=== PATIENT | male | born 1925 | race Caucasian/White ===

== ENCOUNTER 2016-10-26 07:49 | Inpatient (IN) | payer MEDICARE, OTHER ==
--- NOTE | 2016-10-26 08:04 | ED ---
Fall HPI - General Source: RN notes reviewed, old records reviewed <Sabi Rosario - Last Filed: 10/26/16 09:49> <Carmelo Drake - Last Filed: 10/27/16 07:41> - General Chief Complaint: Fall Stated Complaint: Fall Time Seen by Provider: 10/26/16 07:51 - History of Present Illness Initial Comments: This is a 89-year-old male presenting to the emergency department, chief complaint of sliding out of bed. Patient reports that he was trying to use the urinal, and his foot got caught in the covers and twisted. Patient reports that in the process of trying to untwist his leg he slipped out of his bed and landed with his knees bent in an awkward position and was laying on his stomach. Patient reports that he was down there for approximately an hour. Patient states that he currently lives in [facility] assisted living facility. Patient reports that he did not hit his head on the fall. He denies any loss of consciousness. He reports the pain is mainly in his lower back, and knees. He reports he's had surgeries on both knees and back. Patient reports that he did not hit his head. He has a history of A. fib, and heart failure. Patient reports that he's had some swelling in his legs but that is been chronic and no acute differences at this time. He is on Lasix 40 mg. Patient denies any recent fever or chills, chest pain, shortness of breath, abdominal pain, nausea or vomiting. (Sabi Rosario) - Related Data Home Medications Medication Instructions Recorded Confirmed Aspirin EC [Ecotrin] 81 mg PO QAM 02/25/14 10/26/16 Clopidogrel [Plavix] 75 mg PO QAM 02/25/14 10/26/16 Ezetimibe [Zetia] 10 mg PO QAM 02/25/14 10/26/16 Ferrous Sulfate [Feosol] 325 mg PO HS 02/25/14 10/26/16 Multivitamin [Men's Multi-Vitamin] 1 tab PO DAILY 02/25/14 10/26/16 Potassium Chloride ER [K-Dur 20] 20 meq PO HS 02/25/14 10/26/16 Vitamin E (Dl,Tocopheryl Acet) 400 unit PO HS 02/25/14 10/26/16 [Vitamin E] guaiFENesin [Mucinex] 1,200 mg PO HS PRN 02/25/14 10/26/16 Carvedilol [Coreg] 12.5 mg PO BID 08/25/15 10/26/16 Ergocalciferol (Vitamin D2) 50,000 unit PO TU 08/25/15 10/26/16 [Drisdol] Furosemide [Lasix] 40 mg PO HS 10/26/16 10/26/16 Meclizine [Antivert] 25 mg PO BID PRN 10/26/16 10/26/16 Previous Rx's Medication Instructions Recorded predniSONE 50 mg PO DAILY #5 tab 08/25/15 Allergies Allergy/AdvReac Type Severity Reaction Status Date / Time Sulfa (Sulfonamide Allergy Unknown Verified 10/26/16 08:28 Antibiotics) Review of Systems ROS Other: All systems not noted in ROS Statement are negative. <Sabi Rosario - Last Filed: 10/26/16 09:49> ROS Other: All systems not noted in ROS Statement are negative. <Carmelo Drake - Last Filed: 10/27/16 07:41> ROS Statement: Those systems with pertinent positive or pertinent negative responses have been documented in the HPI. Past Medical History Past Medical History: Heart Failure, Hypertension Additional Past Medical History / Comment(s): peptic ulcer, sleep apnea History of Any Multi-Drug Resistant Organisms: None Reported Past Surgical History: Back Surgery, Heart Catheterization With Stent, Joint Replacement, Orthopedic Surgery Additional Past Surgical History / Comment(s): stomach, prostate, cataract Past Psychological History: No Psychological Hx Reported Smoking Status: Former smoker Past Alcohol Use History: Occasional Past Drug Use History: None Reported <Sabi Rosario - Last Filed: 10/26/16 09:49> General Exam General appearance: alert, in no apparent distress Head exam: Present: atraumatic, normocephalic, normal inspection Eye exam: Present: normal appearance, PERRL, EOMI. Absent: scleral icterus, conjunctival injection, periorbital swelling ENT exam: Present: normal exam, mucous membranes moist Neck exam: Present: normal inspection. Absent: tenderness, meningismus, lymphadenopathy Respiratory exam: Present: normal lung sounds bilaterally. Absent: respiratory distress, wheezes, rales, rhonchi, stridor Cardiovascular Exam: Present: regular rate, normal rhythm, normal heart sounds. Absent: systolic murmur, diastolic murmur, rubs, gallop, clicks GI/Abdominal exam: Present: soft, normal bowel sounds. Absent: distended, tenderness, guarding, rebound, rigid Extremities exam: Present: normal inspection, pedal edema (Patient has 4+ bilateral pedal edema. There is an area over the left medial knee which has a blister. Patient reports that that was from his fall and laying there for so long. There are also a few areas of erythematous lesions over bilateral legs, patient reports that they are spider bites.) Back exam: Present: normal inspection, tenderness (She reports lumbar spinal tenderness.) Neurological exam: Present: alert, oriented X3, CN II-XII intact Psychiatric exam: Present: normal affect, normal mood Skin exam: Present: warm <Sabi Rosario - Last Filed: 10/26/16 09:49> <Carmelo Drake - Last Filed: 10/27/16 07:41> - General Exam Comments Initial Comments: This is a 89-year-old male. Patient does not appear to be in any acute distress. Patient is joking and laughing. (Sabi Rosario) Medical Decision Making - Lab Data Result diagrams: 10/26/16 08:20 10/26/16 08:20 - Radiology Data Radiology results: report reviewed <Sabi Rosario - Last Filed: 10/26/16 09:49> - Lab Data Result diagrams: 10/27/16 05:17 10/27/16 05:17 <Carmelo Drake - Last Filed: 10/27/16 07:41> - Medical Decision Making 89-year-old male chief complaint of a fall out of bed. He does arrive to emergency department complaining of some knee pain and lower back pain. He has significant bilateral pedal edema. Patient EKG does show A. fib however this was noted to be in the previous chart in 2013. He is currently on Plavix for anticoagulation therapy. Patient troponin level is noted to be elevated at 0.053. I discussed this case with Dr. Arshad. Patient will be admitted. Patient was given morphine, aspirin. He does not complain of any chest pain at this time.Patient's urinalysis also does show sign of severe infection. Culture will be obtained. Patient will be started on Rocephin. Patient's knee x-ray and chest x-ray were both normal, no significant abnormalities. He does have significant subcutaneous edema bilateral lower extremities. He does request a catheter to be initiated he is been leaking his urine and will be doing so if he started on Lasix. Catheter was started. Patient's lumbar spine CT does show multiple degenerative disc disease, and canal stenosis. The report is dictated below. Patent will be admitted to Dr. Callahan. (Sabi Rosario) 89-year-old male with chief complaint of sliding out of his bed. Complaining of low back pain, bilateral knee.. Patient denies any head or neck trauma. He does have history of atrial fibrillation, and heart failure. On examination patient has tenderness in the lumbar spine, no external signs of trauma, bilateral knee tenderness again no external signs of trauma. X-rays are obtained of the bilateral knees, no acute fracture dislocation, computed tomography scan lumbar spine shows no acute fracture or subluxation, there is significant disease within the lumbar spine, patient is wheelchair-bound at baseline. Laboratory studies reveal signs of urinary tract infection, urine culture is pending patient will be treated empirically. Troponin level is mildly elevated, 0.053, patient has no chest pain no shortness of breath. EKG shows no acute ischemic changes. Patient will be admitted for serial troponins and treatment of urinary tract infection. Patient is agreeable with this plan. (Carmelo Drake) - Lab Data Lab Results 10/26/16 10/26/16 10/26/16 Range/Units 08:20 08:20 08:20 WBC 13.2 H (3.8-10.6) k/uL RBC 4.00 L (4.30-5.90) m/uL Hgb 14.5 (13.0-17.5) gm/dL Hct 44.6 (39.0-53.0) % MCV 111.5 H (80.0-100.0) fL MCH 36.2 H (25.0-35.0) pg MCHC 32.5 (31.0-37.0) g/dL RDW 13.6 (11.5-15.5) % Plt Count 136 L (150-450) k/uL Neutrophils % 82 % Lymphocytes % 7 % Monocytes % 7 % Eosinophils % 2 % Basophils % 1 % Neutrophils # 10.9 H (1.3-7.7) k/uL Lymphocytes # 0.9 L (1.0-4.8) k/uL Monocytes # 1.0 (0-1.0) k/uL Eosinophils # 0.3 (0-0.7) k/uL Basophils # 0.1 (0-0.2) k/uL Manual Slide Review Performed Macrocytosis Marked PT 11.4 (9.0-12.0) sec INR 1.1 (<1.2) APTT 22.5 (22.0-30.0) sec Sodium 136 L (137-145) mmol/L Potassium 4.0 (3.5-5.1) mmol/L Chloride 99 (98-107) mmol/L Carbon Dioxide 29 (22-30) mmol/L Anion Gap 8 mmol/L BUN 25 H (9-20) mg/dL Creatinine 1.01 (0.66-1.25) mg/dL Est GFR (MDRD) Af Amer >60 (>60 ml/min/1.73 sqM) Est GFR (MDRD) Non-Af >60 (>60 ml/min/1.73 sqM) Glucose 233 H (74-99) mg/dL Estimated Ave Glu mg/dL mg/dL Hemoglobin A1c (4.2-6.1) % Calcium 9.1 (8.4-10.2) mg/dL Troponin I (0.000-0.034) ng/mL NT-Pro-B Natriuret Pep pg/mL Urine Color Urine Appearance (Clear) Urine pH (5.0-8.0) Ur Specific [place] (1.001-1.035) Urine Protein (Negative) Urine Glucose (UA) (Negative) Urine Ketones (Negative) Urine Blood (Negative) Urine Nitrite (Negative) Urine Bilirubin (Negative) Urine Urobilinogen (<2.0) mg/dL Ur Leukocyte Esterase (Negative) Urine RBC (0-5) /hpf Urine WBC (0-5) /hpf Urine WBC Clumps (None) /hpf Urine Bacteria (None) /hpf Stool Occult Blood (Negative) 10/26/16 10/26/16 10/26/16 Range/Units 08:20 08:20 08:20 WBC (3.8-10.6) k/uL RBC (4.30-5.90) m/uL Hgb (13.0-17.5) gm/dL Hct (39.0-53.0) % MCV (80.0-100.0) fL MCH (25.0-35.0) pg MCHC (31.0-37.0) g/dL RDW (11.5-15.5) % Plt Count (150-450) k/uL Neutrophils % % Lymphocytes % % Monocytes % % Eosinophils % % Basophils % % Neutrophils # (1.3-7.7) k/uL Lymphocytes # (1.0-4.8) k/uL Monocytes # (0-1.0) k/uL Eosinophils # (0-0.7) k/uL Basophils # (0-0.2) k/uL Manual Slide Review Macrocytosis PT (9.0-12.0) sec INR (<1.2) APTT (22.0-30.0) sec Sodium (137-145) mmol/L Potassium (3.5-5.1) mmol/L Chloride (98-107) mmol/L Carbon Dioxide (22-30) mmol/L Anion Gap mmol/L BUN (9-20) mg/dL Creatinine (0.66-1.25) mg/dL Est GFR (MDRD) Af Amer (>60 ml/min/1.73 sqM) Est GFR (MDRD) Non-Af (>60 ml/min/1.73 sqM) Glucose (74-99) mg/dL Estimated Ave Glu mg/dL 206 mg/dL Hemoglobin A1c 8.8 H (4.2-6.1) % Calcium (8.4-10.2) mg/dL Troponin I 0.053 H* (0.000-0.034) ng/mL NT-Pro-B Natriuret Pep 2180 pg/mL Urine Color Urine Appearance (Clear) Urine pH (5.0-8.0) Ur Specific Bar[place] (1.001-1.035) Urine Protein (Negative) Urine Glucose (UA) (Negative) Urine Ketones (Negative) Urine Blood (Negative) Urine Nitrite (Negative) Urine Bilirubin (Negative) Urine Urobilinogen (<2.0) mg/dL Ur Leukocyte Esterase (Negative) Urine RBC (0-5) /hpf Urine WBC (0-5) /hpf Urine WBC Clumps (None) /hpf Urine Bacteria (None) /hpf Stool Occult Blood (Negative) 10/26/16 10/26/16 Range/Units 09:00 09:30 WBC (3.8-10.6) k/uL RBC (4.30-5.90) m/uL Hgb (13.0-17.5) gm/dL Hct (39.0-53.0) % MCV (80.0-100.0) fL MCH (25.0-35.0) pg MCHC (31.0-37.0) g/dL RDW (11.5-15.5) % Plt Count (150-450) k/uL Neutrophils % % Lymphocytes % % Monocytes % % Eosinophils % % Basophils % % Neutrophils # (1.3-7.7) k/uL Lymphocytes # (1.0-4.8) k/uL Monocytes # (0-1.0) k/uL Eosinophils # (0-0.7) k/uL Basophils # (0-0.2) k/uL Manual Slide Review Macrocytosis PT (9.0-12.0) sec INR (<1.2) APTT (22.0-30.0) sec Sodium (137-145) mmol/L Potassium (3.5-5.1) mmol/L Chloride (98-107) mmol/L Carbon Dioxide (22-30) mmol/L Anion Gap mmol/L BUN (9-20) mg/dL Creatinine (0.66-1.25) mg/dL Est GFR (MDRD) Af Amer (>60 ml/min/1.73 sqM) Est GFR (MDRD) Non-Af (>60 ml/min/1.73 sqM) Glucose (74-99) mg/dL Estimated Ave Glu mg/dL mg/dL Hemoglobin A1c (4.2-6.1) % Calcium (8.4-10.2) mg/dL Troponin I (0.000-0.034) ng/mL NT-Pro-B Natriuret Pep pg/mL Urine Color Yellow Urine Appearance Turbid (Clear) Urine pH 5.5 (5.0-8.0) Ur Specific Barco 1.017 (1.001-1.035) Urine Protein 1+ H (Negative) Urine Glucose (UA) Negative (Negative) Urine Ketones Negative (Negative) Urine Blood Moderate H (Negative) Urine Nitrite Positive (Negative) Urine Bilirubin Negative (Negative) Urine Urobilinogen <2.0 (<2.0) mg/dL Ur Leukocyte Esterase Large H (Negative) Urine RBC 78 H (0-5) /hpf Urine WBC >182 H (0-5) /hpf Urine WBC Clumps Many H (None) /hpf Urine Bacteria Few H (None) /hpf Stool Occult Blood Negative (Negative) 10/26/16 08:42 EKG shows A. fib, ventricular rate of 63 bpm. QRS duration 106 ms. QT QTc is 450/460 ms. Evidence of anterior lateral infarct previous,. (Sabi Rosario) - Radiology Data No acute fracture dislocation either knee. Prostate EC suramin anatomic alignment. Generalized subcu edema both lower extremity. CT lumbar spine shows grade 1 spondylolisthesis of a 6 mm anterior position of L4 over L5 with posterior pseudo-disc at L4-L5 level. Postlaminectomy changes at L4-L5. Some particular recess stenosis more notable L2-L3. Canal stenosis at L2 and L3-L4 suspected be correlated with MRI. Moderate hypertrophic changes of the posterior facets. This was read by Dr. Epperson. Chest x-ray shows no acute cardiopulmonary process. (Sabi Rosario) Disposition Time of Disposition: 09:48 <Sabi Rosario - Last Filed: 10/26/16 09:49> <Carmelo Drake - Last Filed: 10/27/16 07:41> Clinical Impression: Fall, Elevated troponin, Heart failure, Back pain, Knee pain, bilateral, UTI ( urinary tract infection) Disposition: ADMITTED IP TO THIS HOSP Condition: Stable
[2016-10-26 08:35] LABS: Basophils # (A) 0.1 k/uL (0-0.2); Basophils % (A) 1 %; CH 36.4; CHCM 32.9; Eosinophils # (A) 0.3 k/uL (0-0.7); Eosinophils % (A) 2 %; HCT 44.6 % (39.0-53.0); HDW 2.23; HGB 14.5 gm/dL (13.0-17.5); Luc % (Auto) 2; Lymphocytes # (A) 0.9 k/uL (1.0-4.8); Lymphocytes % (A) 7 %; MCH 36.2 pg (25.0-35.0); MCHC 32.5 g/dL (31.0-37.0); MCV 111.5 fL (80.0-100.0); Macrocytosis Marked; Mean Platelet Volume 10.1; Monocytes % (A) 7 %; Neutrophils # (A) 10.9 k/uL (1.3-7.7); Neutrophils % (A) 82 %; RDW 13.6 % (11.5-15.5); WBC 13.2 k/uL (3.8-10.6); WBC (Perox) 13.19
[2016-10-26 08:43] LABS: INR 1.1 (<1.2); Partial Thromboplastin Time 22.5 sec (22.0-30.0); Prothrombin Time 11.4 sec (9.0-12.0)
[2016-10-26 08:44] LABS: Anion Gap 8 mmol/L; Blood Urea Nitrogen 25 mg/dL (9-20); Calcium 9.1 mg/dL (8.4-10.2); Carbon Dioxide 29 mmol/L (22-30); Chloride 99 mmol/L (98-107); Glucose 233 mg/dL (74-99); Non-African American GFR(MDRD) >60 (>60 ml/min/1.73 sqM); Sodium 136 mmol/L (137-145)
[2016-10-26 08:59] LABS: Manual Review Performed
[2016-10-26 09:23] LABS: Appearance,Urine Turbid (Clear); Bacteria,Urine Few /hpf; Bilirubin,Urine Negative (Negative); Glucose,Urine (UA) Negative (Negative); Ketones,Urine Negative (Negative); Leukocyte Esterase,Urine Large (Negative); Nitrite,Urine Positive (Negative); PH, Urine 5.5 (5.0-8.0); Particle Count 79140; Protein,Urine 1+ (Negative); RBC,Urine 78 /hpf (0-5); Specific Gravity,Urine 1.017 (1.001-1.035); UA Billing (MACRO vs. MICRO) MICRO; Urobilinogen,Urine <2.0 mg/dL (<2.0); WBC,Urine >182 /hpf (0-5)
--- NOTE | 2016-10-26 09:28 | XR ---
EXAMINATION TYPE: XR chest 2V DATE OF EXAM: 10/26/2016 COMPARISON: 02/25/2014 HISTORY: Fall. Chest pain TECHNIQUE: Frontal and lateral views of the chest are obtained. FINDINGS: There is no focal air space opacity, pleural effusion, or pneumothorax seen. The cardiac silhouette size is within normal limits. The osseous structures are intact. Surgical clips project in the retrocardiac airspace. There is tortuosity of the descending thoracic aorta. IMPRESSION: No acute cardiopulmonary process.
--- NOTE | 2016-10-26 09:30 | XR ---
EXAMINATION TYPE: XR knee limited bilateral DATE OF EXAM: 10/26/2016 CLINICAL HISTORY: Fall and bilateral knee pain. Bilateral lower extremity edema. TECHNIQUE: Frontal and lateral radiographs were obtained of both knees COMPARISON: None. FINDINGS: Generalized subcutaneous edema is present bilaterally. Bilateral total knee arthroplasties are appreciated with maintained anatomic alignment. Extensive vascular sclerosis is noted. No eviden ce of acute fracture or dislocation. No evidence of periprosthetic lucency. IMPRESSION: There is no acute fracture or dislocation in either knee. Prostheses remain in anatomic alignment. Generalized subcutaneous edema of both lower extremities.
[2016-10-26] MEDS ORDERED: ASPIRIN 81 MG CHEW PO STA (09:31)
[2016-10-26] MEDS ORDERED: MORPHINE SULFATE 4 MG/ML SYRINGE IVP STA (09:31)
--- NOTE | 2016-10-26 09:37 | CT ---
EXAMINATION TYPE: CT lumbar spine wo con DATE OF EXAM: 10/26/2016 9:09 AM COMPARISON: 08/25/2015 HISTORY: Fall CT DLP: 1414.5 mGycm Automated exposure control for dose reduction was used. Unenhanced CT of the lumbar spine was performed. Bone and soft tissue window settings are submitted as well as coronal and sagittal reconstructions. There is severe multilevel degenerative disc disease with numerous vacuum disc. Curvature of the spin e noted. Hypertrophic spurs at all levels. No compression deformities. Ectasia and atherosclerotic change of the aorta and iliac vasculature. There is a cystic lesion involving the right renal pelvis measuring 6 Hounsfield units compatible sim ple cyst. Calcification is again suspected within the cyst. T12-L1: No focal disc herniation or significant disc bulge is evident. No spinal canal stenosis or ne ural foraminal stenosis is present. L1-L2: No focal disc herniation or significant disc bulge is evident. No spinal canal stenosis or berna ral foraminal stenosis is present. Vacuum phenomena and loss of height at the intervertebral disc spa ce. At L2-3 and L3-4 there is severe degenerative disc disease with hypertrophic changes. Hypertrophic ch franklin of the facets and ligamentum flavum degenerative disc disease contribute to canal stenosis at rylan th levels with bilateral foraminal encroachment. L4-L5: Grade 1 spondylolisthesis with a 6 mm anterior position of L4 over L5. Loss of height and vacu um phenomena at the intervertebral disc space and a posterior pseudodisc at the L4-L5 level. Moderate hypertrophic changes of the posterior facets. Postsurgical changes with prior laminectomies posterio r to the L4 and L5 vertebra. L5-S1: Loss of height of the intervertebral disc space with hypertrophic changes of the posterior fac ets. IMPRESSION: 1. Grade 1 spondylolisthesis with a 6 mm anterior position of L4 over L5 with a posterior pseudodisc at the L4-L5 level. 2. Post laminectomy changes at L4 and L5 level. Severe foraminal encroachment bilaterally 3. Subarticular recess stenosis more noticeable at the L2- L3 level. Canal stenosis at L2-3 and L3-4 suspected to be correlated with MRI. 4. Moderate hypertrophic changes of the posterior facets.
[2016-10-26] MEDS ORDERED: ALPRAZolam 0.25 MG TAB PO PRN (10:14)
[2016-10-26] MEDS ORDERED: NALOXONE 0.4 MG/ML 1 ML VIAL IV PRN (10:14)
[2016-10-26] MEDS ORDERED: HEPARIN SODIUM,PORCINE 5,000 UNIT/ML 1 ML VIAL SQ SCH (16:00)
[2016-10-26 16:39] LABS: Glucose,Whole Blood 271 mg/dL (75-99)
[2016-10-26] MEDS: FUROSEMIDE 40 MG TAB PO SCH (16:58)
--- NOTE | 2016-10-26 17:32 | P.HPIM ---
History of Present Illness H&P Date: 10/26/16 Chief Complaint: Fall at home 89-year-old male with past medical history of hypertension, atrial fibrillation , chronic lower extremity edema, and debility due to advanced age. Patient lives at care home home alone he has visiting nursing 8 who comes and checks on him one every day. He reports that he woke up this morning feeling at his baseline status of health. He tried to get off the bed to use the urinalysis however his foot got tangled with the sheets and he fell off the edge of the bed without hitting his head as he was hanging off the edge of the bed he remained in that position trying to make himself comfortable as his legs were tangled however he could not release himself and stayed there for an hour until the executive director of nursing has arrived and found him in that status who has called EMS and brought him to the hospital. Otherwise patient denies any dysuria, polyuria, urgency, fevers, chills, nausea or vomiting, denies any abdominal pain. Patient was able to give full history with intact remote and recent memory. Patient denies any headache chest pain or trouble breathing, denies any paroxysmal nocturnal dyspnea, orthopnea. I verified the above history with his family member. Patient family member indicated that patient wishes were to be no code this has been verified with the patient verbalized agreement. Patient reports that he has bilateral leg weakness and this been going on for years that made him wheelchair-bound he has an electric scooter that he uses at home. Review of Systems Constitutional: Patient reports no fever, no chills, no night sweating, no significant weight changes Eyes: Patient reports no visual changes, no eye pain ENT: Patient reports no ear pain, no rhinorrhea, no sore throat Cardiovascular: Patient reports no chest pain, no exertional dyspnea, no orthopnea, no paroxysmal nocturnal dyspnea. Patient reports chronic lower extremity edema bilaterally Respiratory:Patient reports no cough, no wheezing, no shortness of breath Gastrointestinal: Patient reports no diarrhea, no constipation, no nausea no vomiting, no abdominal pain Genitourinary: Patient reports no dysuria, no hematuria, no changes in urinary habits. Patient and family does report frequent urinary tract infections Musculoskeletal: Patient reports no muscle pain, reports chronic low back pain and limited range of motion of both upper extremities and shoulders Psychiatric: Patient reports no changes in mood or memory, no suicidal ideation , no anxiety Endocrine: Patient reports no heat intolerance, no cold intolerance, no excessive thirst, no polyuria Neurological: Patient reports chronic lower extremity weakness, numbness both lower extremities chronic Hem/Lymphatic: Patient reports no bleeding tendency, no bruising, no swollen lymph glands Allergic/Immun: Patient reports no recent allergic reactions Skin: Patient reports no rashes, no pruritis, no ulcers Past Medical History Past Medical History: Atrial Fibrillation, Heart Failure, Hypertension, Myocardial Infarction (IA), Osteoarthritis (OA), Prostate Disorder, Sleep Apnea/ CPAP/BIPAP Additional Past Medical History / Comment(s): Chronic bilateral lower leg/pedal edema, current sore R foot and L calf, PUD, BOB with O2 NC/concentrator prn, intermittent vertigo-worse when 1st sits up, numbness from "belt down," limited ROM in shoulders, pt is chairbound, BPH, R side sciatica. Last Myocardial Infarction Date:: 2004 History of Any Multi-Drug Resistant Organisms: None Reported Past Surgical History: Back Surgery, Heart Catheterization With Stent, Joint Replacement, Orthopedic Surgery Additional Past Surgical History / Comment(s): Has only 1/4 stomach left, TURP, 5 vertebrae scraped of arthritis, bilateral total knee arthroplasties, bilateral cataract removal with lens implants, colonoscopy, L ankle/L leg surgery as child after injury. Past Anesthesia/Blood Transfusion Reactions: Postoperative Nausea & Vomiting ( PONV) Date of Last Stent Placement:: 2004 Smoking Status: Former smoker Past Alcohol Use History: None Reported Past Drug Use History: None Reported - Past Family History Father Additional Family Medical History / Comment(s): Father of a ruptured aortic aneurysm. Mother Family Medical History: Deep Vein Thrombosis (DVT) Additional Family Medical History / Comment(s): Mother at the age of 78yrs. she was diagnosed with a blood clot at one point Medications and Allergies Home Medications Medication Instructions Recorded Confirmed Type Aspirin EC [Ecotrin] 81 mg PO QAM 02/25/14 10/26/16 History Clopidogrel [Plavix] 75 mg PO QAM 02/25/14 10/26/16 History Ezetimibe [Zetia] 10 mg PO QAM 02/25/14 10/26/16 History Ferrous Sulfate [Feosol] 325 mg PO 02/25/14 10/26/16 History Multivitamin [Men's Multi-Vitamin] 1 tab PO DAILY 02/25/14 10/26/16 History Potassium Chloride ER [K-Dur 20] 20 meq PO HS 02/25/14 10/26/16 History Vitamin E (Dl,Tocopheryl Acet) 400 unit PO HS 02/25/14 10/26/16 History [Vitamin E] guaiFENesin [Mucinex] 1,200 mg PO HS PRN 02/25/14 10/26/16 History Carvedilol [Coreg] 12.5 mg PO BID 08/25/15 10/26/16 History Ergocalciferol (Vitamin D2) 50,000 unit PO TU 08/25/15 10/26/16 History [Drisdol] Furosemide [Lasix] 40 mg PO HS 10/26/16 10/26/16 History Meclizine [Antivert] 25 mg PO BID PRN 10/26/16 10/26/16 History Allergies Allergy/AdvReac Type Severity Reaction Status Date / Time Sulfa (Sulfonamide Allergy Unknown Verified 10/26/16 08:28 Antibiotics) Physical Exam Vitals: Vital Signs Temp Pulse Resp BP Pulse Ox 10/26/16 12:26 98.9 F 78 16 138/77 94 L 10/26/16 09:36 64 18 144/69 94 L 10/26/16 07:59 98.6 F 64 18 129/77 Intake and Output 10/26/16 10/26/16 10/26/16 06:59 14:59 22:59 Other: Voiding Method Urinal Diaper Incontinent # Voids 1 Weight 99.79 kg Patient Weight 10/27/16 06:59 Weight 99.79 kg Constitutional: Not in acute distress, pleasant, conversant, vital signs stable Eyes: Pupils equal round reactive to light , anicteric sclerae, moist conjunctivae ENMT: Normocephalic, atraumatic, oropharynx clear, no erythema/exudate Neck: Supple, FORM, no palpable thyromegally Lymphatics: no palpable cervical or supraclavicular lymph nodes, no palpable inguinal lymph nodes Respiratory: Clear to auscultation bilaterally, no wheezes, no crackles, no rhonchi, clear to percussion, normal respiratory effort without use of accessory muscles Cardiovascular: Irregular rate and rhythm, no murmurs, no gallops, no rubs, +3 leg edema bilaterally with intact blister over left medial thigh, no JVD, no carotid bruits, femoral arteries palpable bilaterally with no bruits, peripheral pulses palpable and equal over bilateral radial arteries , however could not palpate dorsalis pedis arteries bilaterally due to pedal edema Abdomen: Bowel sounds positive, soft, no tenderness to palpation, no palpable masses, no palpable hepatosplenomegally, no abdominal wall hernias Skin: Unremarkable temperature, tone, texture, and turgor, no induration or subcutaneous nodule. Small pressure sore over bilateral feet Extremities: No digital cyanosis, ischemia or clubbing, no calf muscle tenderness bilaterally, weakness of lower extremities with strength of 3 out of 5, upper extremities with strength of -4 over 5 Psych: Alert, oriented to place, person and date, recent and remote memory intact, appropriate mood and affect, intact judgment Neurologic: Cranial nerves II-XII grossly intact, decreased sensation to light touch over lower extremities, could not elicit deep tendon reflexes over bilateral knees Results Results: Labs reviewed EKG showing A. fib rate controlled, Q wave in anterior septal leads CBC & Chem 7: 10/26/16 08:20 10/26/16 08:20 Labs: Abnormal Lab Results - Last 24 Hours (Table) 10/26/16 10/26/16 10/26/16 Range/Units 08:20 08:20 08:20 WBC 13.2 H (3.8-10.6) k/uL RBC 4.00 L (4.30-5.90) m/uL MCV 111.5 H (80.0-100.0) fL MCH 36.2 H (25.0-35.0) pg Plt Count 136 L (150-450) k/uL Neutrophils # 10.9 H (1.3-7.7) k/uL Lymphocytes # 0.9 L (1.0-4.8) k/uL Sodium 136 L (137-145) mmol/L BUN 25 H (9-20) mg/dL Glucose 233 H (74-99) mg/dL POC Glucose (mg/dL) (75-99) mg/dL Troponin I 0.053 H* (0.000-0.034) ng/mL Urine Protein (Negative) Urine Blood (Negative) Ur Leukocyte Esterase (Negative) Urine RBC (0-5) /hpf Urine WBC (0-5) /hpf Urine WBC Clumps (None) /hpf Urine Bacteria (None) /hpf 10/26/16 10/26/16 Range/Units 09:00 16:37 WBC (3.8-10.6) k/uL RBC (4.30-5.90) m/uL MCV (80.0-100.0) fL MCH (25.0-35.0) pg Plt Count (150-450) k/uL Neutrophils # (1.3-7.7) k/uL Lymphocytes # (1.0-4.8) k/uL Sodium (137-145) mmol/L BUN (9-20) mg/dL Glucose (74-99) mg/dL POC Glucose (mg/dL) 271 H (75-99) mg/dL Troponin I (0.000-0.034) ng/mL Urine Protein 1+ H (Negative) Urine Blood Moderate H (Negative) Ur Leukocyte Esterase Large H (Negative) Urine RBC 78 H (0-5) /hpf Urine WBC >182 H (0-5) /hpf Urine WBC Clumps Many H (None) /hpf Urine Bacteria Few H (None) /hpf Microbiology - Last 24 Hours (Table) 10/26/16 09:00 Urine Culture - Preliminary Urine,Voided Thrombosis Risk Factor Assmnt - Choose All That Apply Any of the Below Risk Factors Present?: Yes Each Factor Represents 1 point: Heart failure (<1month), Medical pt on bed rest , Obesity (BMI >25), Swollen legs (current) Other Risk Factors: Yes Each Risk Factor Represents 3 Points: Age 75 years or older, Family history of DVT/PE Other congenital or acquired thrombophilia - If yes, enter type in comment: No Thrombosis Risk Factor Assessment Total Risk Factor Score: 10 Thrombosis Risk Factor Assessment Level: High Risk Assessment and Plan (1) UTI (urinary tract infection) Narrative/Plan: Recurrent urinary tract infection present on admission no chronic Dunbar catheter Pending urine culture Rocephin daily Status: Acute (2) Macrocytosis without anemia Narrative/Plan: Check vitamin B12 level RBC folate level Check TSH Status: Acute (3) Heart failure Narrative/Plan: By mouth Lasix twice a day Continue home medications Cardiology consultative Monitor intake and output ports, fluid restriction Status: Acute (4) Fall Narrative/Plan: Physical therapy and occupational therapy Fall precautions Status: Acute (5) Elevated troponin Narrative/Plan: History of CAD status post stent Continue with Plavix and aspirin Continue with beta cassidy Trend troponins Cardiology consult Patient denies any chest pain or dyspnea Status: Acute (6) Hyperglycemia Narrative/Plan: Check A1c Insulin sliding scale Long-acting insulin at night low dose Status: Acute (7) Pressure sore Narrative/Plan: Wound care consult Status: Acute (8) DVT prophylaxis Narrative/Plan: Heparin subcu 3 times a day Status: Acute Plan: Patient is DO NOT RESUSCITATE/DO NOT INTUBATE Family contacted. Continue monitoring in the critical care for now, pending further cardiology recommendations I anticipate discharge in 48 hours
--- NOTE | 2016-10-26 20:56 | US ---
EXAMINATION TYPE: US venous doppler duplex LE BI DATE OF EXAM: 10/26/2016 8:37 PM COMPARISON: 10/15/2013 CLINICAL HISTORY: bilateral leg edema, positive d dimer. Bilateral leg edema, elevated d-dimer SIDE PERFORMED: Bilateral TECHNIQUE: The lower extremity deep venous system is examined utilizing real time linear array sonog theodore with graded compression, doppler sonography and color-flow sonography. VESSELS IMAGED: External Iliac Vein (EIV) Common Femoral Vein Deep Femoral Vein Greater Saphenous Vein * Femoral Vein Popliteal Vein Small Saphenous Vein * Proximal Calf Veins (* superficial vessels) Right Leg: Appears negative for DVT Left Leg: Positive for DVT from CFV through proximal calf veins IMPRESSION: There is evidence of acute deep venous thrombosis in the left femoral vein. Normal right leg duplex venous sonogram.
[2016-10-26 21:21] LABS: Glucose,Whole Blood 273 mg/dL (75-99)
[2016-10-26] MEDS ORDERED: HEPARIN SODIUM,PORCINE/D5W PMX 25,000 UNIT in DEXTROSE/WATER 1 500ML.BAG IV SCH (21:27)
[2016-10-26] MEDS ORDERED: HEPARIN SODIUM,PORCINE 5,000 UNIT/ML 1 ML VIAL IV PRN (21:27)
[2016-10-26] MEDS ORDERED: HEPARIN SODIUM,PORCINE 10,000 UNIT/ML 1 ML VIAL IV ONE (21:27)
[2016-10-26 22:17] LABS: Hemoglobin A1C 8.8 % (4.2-6.1)
[2016-10-26] MEDS: VITAMIN E (DL,TOCOPHERYL ACET) 400 UNIT CAP PO SCH (22:24)
[2016-10-26] MEDS: CARVEDILOL 12.5 MG TAB PO SCH (22:24)
[2016-10-26] MEDS: FERROUS SULFATE 325 MG TAB PO SCH (22:24)
[2016-10-26] MEDS: POTASSIUM CHLORIDE ER 20 MEQ TAB.ER PO SCH (22:25)
[2016-10-26 22:26] LABS: INR 1.2 (<1.2); Partial Thromboplastin Time 25.5 sec (22.0-30.0); Prothrombin Time 11.9 sec (9.0-12.0)
[2016-10-26] MEDS: INSULIN DETEMIR 100 UNIT/ML 10 ML VIAL SQ SCH (22:33)
[2016-10-26] MEDS: INSULIN LISPRO (humaLOG) 300 UNIT/3 ML VIAL SQ SCH (23:34)
[2016-10-27] MEDS ORDERED: HEPARIN SODIUM,PORCINE 5,000 UNIT/ML 1 ML VIAL IV PRN (05:15)
[2016-10-27] MEDS: HEPARIN SODIUM,PORCINE/D5W PMX 25,000 UNIT in DEXTROSE/WATER 1 500ML.BAG IV SCH (06:01)
[2016-10-27 06:20] LABS: Glucose,Whole Blood 185 mg/dL (75-99)
[2016-10-27 06:23] LABS: Basophils # (A) 0.1 k/uL (0-0.2); Basophils % (A) 0 %; CH 36.2; CHCM 32.7; Eosinophils # (A) 0.1 k/uL (0-0.7); Eosinophils % (A) 1 %; HCT 40.8 % (39.0-53.0); HDW 2.19; Luc # (Auto) 0.25; Luc % (Auto) 2; Lymphocytes # (A) 1.3 k/uL (1.0-4.8); Lymphocytes % (A) 11 %; MCH 35.4 pg (25.0-35.0); MCHC 31.8 g/dL (31.0-37.0); MCV 111.2 fL (80.0-100.0); Macrocytosis Marked; Mean Platelet Volume 10.3; Monocytes % (A) 8 %; Neutrophils # (A) 9.5 k/uL (1.3-7.7); Neutrophils % (A) 78 %; RBC 3.66 m/uL (4.30-5.90); RDW 13.7 % (11.5-15.5); WBC 12.2 k/uL (3.8-10.6); WBC (Perox) 11.64
[2016-10-27 06:28] LABS: INR 1.3 (<1.2)
[2016-10-27 06:45] LABS: Partial Thromboplastin Time >200.0 sec (22.0-30.0)
[2016-10-27] MEDS: INSULIN LISPRO (humaLOG) 300 UNIT/3 ML VIAL SQ SCH ×4 (06:51→21:41)
[2016-10-27 06:54] LABS: ALT 35 U/L (21-72); AST 46 U/L (17-59); Alkaline Phosphatase 142 U/L (38-126); Anion Gap 7 mmol/L; Blood Urea Nitrogen 25 mg/dL (9-20); Calcium 8.7 mg/dL (8.4-10.2); Carbon Dioxide 31 mmol/L (22-30); Chloride 98 mmol/L (98-107); Glucose 208 mg/dL (74-99); Non-African American GFR(MDRD) >60 (>60 ml/min/1.73 sqM); Potassium 3.6 mmol/L (3.5-5.1); Sodium 136 mmol/L (137-145); Total Bilirubin 0.9 mg/dL (0.2-1.3); Total Protein 5.3 g/dL (6.3-8.2)
[2016-10-27] MEDS: CLOPIDOGREL 75 MG TAB PO SCH (08:32)
[2016-10-27] MEDS: FUROSEMIDE 40 MG TAB PO SCH ×2 (08:32→17:25)
[2016-10-27] MEDS: EZETIMIBE 10 MG TAB PO SCH (08:32)
[2016-10-27] MEDS: CARVEDILOL 12.5 MG TAB PO SCH ×2 (08:33→20:56)
[2016-10-27] MEDS: ASPIRIN 81 MG CHEW PO SCH (08:34)
[2016-10-27] MEDS ORDERED: NON-FORMULARY DRUG (Aspirin Ec 81 MG) PO SCH (09:00)
[2016-10-27] MEDS: MULTIVITAMINS, THERA 1 EACH TAB PO SCH (12:24)
[2016-10-27 12:36] LABS: Glucose,Whole Blood 259 mg/dL (75-99)
--- NOTE | 2016-10-27 13:34 | PN ---
This is an 89-year-old patient who was trying to get out of bed but his legs got entangled and he slowly slid out of bed. He did not hit his head. He did not have any chest discomfort but he has been getting more short of breath than usual. He has extreme atrial fibrillation. He was found in rate control atrial fibrillation at that time. He is not on any anticoagulation. He is on Plavix for coronary artery disease. Dr. Graf put him on this many years back. Cardiology was consulted on account of single abnormal troponin. He never complained of chest discomfort. His medication list was reviewed and includes: 1. Aspirin. 2. Plavix. 3. Zetia. 4. Carvedilol. 5. Lasix. ALLERGIES TO SULFA. He apparently takes his Lasix at night. I am not sure why. Past medical history of heart failure, hypertension, peptic ulcer disease, sleep apnea, cardiac catheterization and stenting. On examination his blood pressure is 123/76, heart rate in the 50s and 60s. He is afebrile. Respirations are normal. He is eating his lunch, sitting comfortably in bed. Breath sounds are decreased bilaterally but there were no rhonchi or crackles. Heart sounds there is a systolic murmur audible. No gallop. Abdomen soft. Extremities are warm. IMPRESSION: 1. Rate controlled atrial fibrillation. 2. Known cardiac disease status post stenting. SUGGEST: I would stop Plavix. I would start him on anticoagulation and switch from heparin and baby aspirin may be continued if he is on Coumadin. Continue Lasix 40 mg po b.i.d. MTDD
[2016-10-27 17:13] LABS: Glucose,Whole Blood 168 mg/dL (75-99)
[2016-10-27] MEDS: VITAMIN E (DL,TOCOPHERYL ACET) 400 UNIT CAP PO SCH (20:56)
[2016-10-27] MEDS: POTASSIUM CHLORIDE ER 20 MEQ TAB.ER PO SCH (20:56)
[2016-10-27] MEDS: FERROUS SULFATE 325 MG TAB PO SCH (20:56)
[2016-10-27 21:19] LABS: Glucose,Whole Blood 209 mg/dL (75-99)
--- NOTE | 2016-10-27 21:39 | CONS ---
This is an 89 -year-old gentleman who has been admitted to [facility] with history of fall at home and ultrasound showed patient has a DVT of the left leg. I was consulted for possible placement of the filter. The patient is on heparin at this moment. The patient has history of atrial fibrillation with rate controlled and is not on any anticoagulation due to the risk of outweigh the benefit. The patient also has history of hypertension and chronic lower extremity. On examination, the patient was seen in his room. The patient is well oriented to time and place. His neck is supple. No bruit appreciated. Chest is clear to auscultation. Abdomen is soft, nontender. Femoral pulses are present. Vascular examination both lower extremities have marked swelling and edema. Femoral pulses are present. No vascular compromise noted. Plan is discuss with the patient and the daughter and with internal medicine about the placement of the filter. Because the patient is high risk for anticoagulation and history of fall at home. They all agreed. We will arrange for placement of the filter. Risks and complications of bleeding, infection and thrombosis has been discussed. GATO
[2016-10-27] MEDS: INSULIN DETEMIR 100 UNIT/ML 10 ML VIAL SQ SCH (21:41)
--- NOTE | 2016-10-28 00:05 | P.PN ---
Subjective Principal diagnosis: Patient seen and examined in follow-up for urinary tract infection, left lower extremity acute DVT 89-year-old male with past medical history of hypertension, atrial fibrillation rate controlled, chronic lower extremity edema, and debility due to advanced age. Patient presented to the hospital after sustaining a fall off his bed, patient has chronic lower extremity weakness and he is wheelchair bound. However he was trying to reach out for his urine now when his feet got tangled with the sheets and he fell off the bed without hitting the ground and was hanging getting on the edge of the bed for an hour until his nurse aides showed up and helped him out and brought him to the hospital for further evaluation. Patient has intact recent and remote memory and he was able to give good history. Patient doing well today no new complaints, i had prolonged discussion with the patient and his family regarding his new diagnosis of acute DVT with treatment options risks and benefits. Objective - Vital Signs Vital signs: Vital Signs Temp 98.1 F 10/27/16 20:00 Pulse 68 10/27/16 20:00 Resp 18 10/27/16 20:00 BP 117/63 10/27/16 20:00 Pulse Ox 94 L 10/27/16 20:00 Intake & Output 10/27/16 10/27/16 10/28/16 06:59 18:59 06:59 Intake Total 15.667 1120 Output Total 440 175 Balance 15.667 680 -175 Weight 84.5 kg 84.5 kg Intake: Intake, IV Titration 15.667 220 Amount Heparin Sodium,Porcine/ 15.667 0 D5w Pmx 25,000 unit In Dextrose/Water 1 500ml. bag @ 10.1 UNITS/KG/HR 20 .15 mls/hr IV .Q24H AIDAN Rx#:[id number] Heparin Sodium,Porcine/ 120 D5w Pmx 25,000 unit In Dextrose/Water 1 500ml. bag @ 18 UNITS/KG/HR 35. 92 mls/hr IV .[id number] AIDAN Rx#:[id number] cefTRIAXone 1,000 mg In 100 Sodium Chloride 0.9% 50 ml @ 100 mls/hr IVPB Q24HR AIDAN Rx#:[id number] Oral 900 Output: Urine 440 175 Other: Voiding Method Urinal Urinal Urinal Diaper Diaper Diaper Incontinent Incontinent Incontinent # Voids 1 4 - Labs CBC & Chem 7: 10/27/16 05:17 10/27/16 05:17 Labs: Abnormal Lab Results - Last 24 Hours (Table) 10/27/16 10/27/16 10/27/16 Range/Units 05:17 05:17 05:17 WBC 12.2 H (3.8-10.6) k/uL RBC 3.66 L (4.30-5.90) m/uL MCV 111.2 H (80.0-100.0) fL MCH 35.4 H (25.0-35.0) pg Plt Count 120 L (150-450) k/uL Neutrophils # 9.5 H (1.3-7.7) k/uL PT 13.0 H (9.0-12.0) sec INR 1.3 H (<1.2) APTT >200.0 H* (22.0-30.0) sec Sodium 136 L (137-145) mmol/L Carbon Dioxide 31 H (22-30) mmol/L BUN 25 H (9-20) mg/dL Glucose 208 H (74-99) mg/dL POC Glucose (mg/dL) (75-99) mg/dL Alkaline Phosphatase 142 H (38-126) U/L Total Protein 5.3 L (6.3-8.2) g/dL Albumin 2.6 L (3.5-5.0) g/dL 10/27/16 10/27/16 10/27/16 Range/Units 06:18 12:09 15:09 WBC (3.8-10.6) k/uL RBC (4.30-5.90) m/uL MCV (80.0-100.0) fL MCH (25.0-35.0) pg Plt Count (150-450) k/uL Neutrophils # (1.3-7.7) k/uL PT (9.0-12.0) sec INR (<1.2) APTT 68.7 H (22.0-30.0) sec Sodium (137-145) mmol/L Carbon Dioxide (22-30) mmol/L BUN (9-20) mg/dL Glucose (74-99) mg/dL POC Glucose (mg/dL) 185 H 259 H (75-99) mg/dL Alkaline Phosphatase (38-126) U/L Total Protein (6.3-8.2) g/dL Albumin (3.5-5.0) g/dL 10/27/16 10/27/16 Range/Units 17:02 21:18 WBC (3.8-10.6) k/uL RBC (4.30-5.90) m/uL MCV (80.0-100.0) fL MCH (25.0-35.0) pg Plt Count (150-450) k/uL Neutrophils # (1.3-7.7) k/uL PT (9.0-12.0) sec INR (<1.2) APTT (22.0-30.0) sec Sodium (137-145) mmol/L Carbon Dioxide (22-30) mmol/L BUN (9-20) mg/dL Glucose (74-99) mg/dL POC Glucose (mg/dL) 168 H 209 H (75-99) mg/dL Alkaline Phosphatase (38-126) U/L Total Protein (6.3-8.2) g/dL Albumin (3.5-5.0) g/dL Microbiology - Last 24 Hours (Table) 10/26/16 09:00 Urine Culture - Preliminary Urine,Voided Gram Neg Bacilli Assessment and Plan (1) Acute deep vein thrombosis (DVT) of femoral vein Narrative/Plan: Patient has chronic lower extremity swelling D-dimer was positive Venous ultrasound of the lower extremities performed showed acute DVT of the left femoral vein Currently on heparin drip Status: Acute (2) UTI (urinary tract infection) Narrative/Plan: Recurrent urinary tract infection present on admission no chronic Dunbar catheter Pending urine culture sensitive to results Rocephin daily Status: Acute (3) Macrocytosis without anemia Narrative/Plan: TSH, vitamin B12 both unremarkable Status: Acute (4) Heart failure Narrative/Plan: By mouth Lasix twice a day Continue home medications Cardiology input appreciated Monitor intake and output ports, fluid restriction Status: Acute (5) Fall Narrative/Plan: Physical therapy and occupational therapy Fall precautions Status: Acute (6) Elevated troponin Narrative/Plan: History of CAD status post stent Continue with Plavix and aspirin Continue with beta cassidy Cardiology evaluated the patient no further recommendations for ischemic workup Status: Acute (7) Pressure sore Narrative/Plan: Wound care consult Status: Acute (8) Diabetes mellitus Narrative/Plan: A1c shows 8.8 Patient will require to be on oral hypoglycemic agents upon discharge will continue with insulin therapy while inpatient Status: Acute (9) DVT prophylaxis Narrative/Plan: Patient currently on heparin drip due to finding of acute DVT Status: Acute (10) Atrial fibrillation Narrative/Plan: This is rate controlled Patient is high risk for anticoagulation and risks outweigh benefits This has been discussed with cardiology who is in agreement Status: Chronic Plan: I discussed with the patient today the new findings of acute DVT of the lower extremity has family was at bedside we discussed prognosis of acute lower extremity deep vein thrombosis with options for treatment. Patient and family understand that he is high risk for anticoagulation due to risk of falling and intracranial bleeds. One option here is to insert a retractable IVC filter meanwhile patient will be evaluated for subacute rehab he might benefit from a short stay to gain some strength and will be evaluated later on for safety of starting anticoagulation however I doubt he would qualify for full anticoagulation due to advanced age and debility. I explained to the family that IVC filters carry the risk of clotting themselves if they're not associated with concomitant anticoagulation therapy however looking at the full picture having an IVC filter would at least provide some protection against migration of the lower extremity clots and dislodging causing a pulmonary embolism. This was discussed with vascular surgery who is in agreement, family agreed on pursuing that option will await placement of IVC filter. Time with Patient: Greater than 30
[2016-10-28] MEDS: HEPARIN SODIUM,PORCINE/D5W PMX 25,000 UNIT in DEXTROSE/WATER 1 500ML.BAG IV SCH (06:03)
[2016-10-28 06:19] LABS: Glucose,Whole Blood 131 mg/dL (75-99)
[2016-10-28] MEDS: INSULIN LISPRO (humaLOG) 300 UNIT/3 ML VIAL SQ SCH ×4 (06:22→20:43)
[2016-10-28] MEDS ORDERED: IV FLUID CONTINUATION 1,000 ML IV ONE ×2 (08:17)
[2016-10-28] MEDS ORDERED: LIDOCAINE 2% INJ 20 MG/ML SQ ONE (08:17)
[2016-10-28] MEDS ORDERED: fentaNYL (PF) 50 MCG/ML 2 ML AMP IV ONE (08:30)
[2016-10-28] MEDS ORDERED: IODIXANOL 320 MG/ML 100 ML IV ONE (08:48)
--- NOTE | 2016-10-28 08:50 | P.PCN ---
Preoperative Diagnosis: Postoperative Diagnosis: Procedure(s) Performed: Implants: Indications for Procedure: Operative Findings: Description of Procedure: Preoperative diagnoses is deep and thrombosis of left leg Procedure inferior vena cavogram, placement of a TrapEase filter placement infrarenal Patient was brought to the Hot Frame Tender right groin was prepped and draped applied this patient can be antecolic related because of history of fall recurrent right groin was prepped and draped applied. 1% lidocaine was infiltrated in the right groin. Ultrasound-guided micropuncture introducer right femoral vein and micropuncture guidewire was passed. 4-Guyanese dilator advanced top the guidewire then we passed a regular guidewire. A 5-Guyanese sheath was advanced about top of guidewire and cavogram was performed . Renal veins are visualized sheath was advanced on the top of guidewire through the sheath we did introduce the base filter which was deployed below the renal vein filter was in good position sheath was removed pressure held patient tolerated the procedure well and transferred to the room in satisfactory condition
[2016-10-28] MEDS: CLOPIDOGREL 75 MG TAB PO SCH (09:20)
[2016-10-28] MEDS: EZETIMIBE 10 MG TAB PO SCH (09:20)
[2016-10-28] MEDS: FUROSEMIDE 40 MG TAB PO SCH ×2 (09:20→16:38)
[2016-10-28] MEDS: ASPIRIN 81 MG CHEW PO SCH (09:20)
[2016-10-28] MEDS: CARVEDILOL 12.5 MG TAB PO SCH ×2 (09:20→20:42)
[2016-10-28 11:48] LABS: Glucose,Whole Blood 114 mg/dL (75-99)
[2016-10-28] MEDS: MULTIVITAMINS, THERA 1 EACH TAB PO SCH (16:38)
[2016-10-28] MEDS ORDERED: HEPARIN SODIUM,PORCINE 5,000 UNIT/ML 1 ML VIAL IV STA (16:49)
[2016-10-28 17:45] LABS: Glucose,Whole Blood 124 mg/dL (75-99)
--- NOTE | 2016-10-28 18:27 | P.PN ---
Subjective Principal diagnosis: Patient seen and examined in follow-up for urinary tract infection, left lower extremity acute DVT 89-year-old male with past medical history of hypertension, atrial fibrillation rate controlled, chronic lower extremity edema, and debility due to advanced age. Patient presented to the hospital after sustaining a fall off his bed, patient has chronic lower extremity weakness and he is wheelchair bound. However he was trying to reach out for his urine now when his feet got tangled with the sheets and he fell off the bed without hitting the ground and was hanging getting on the edge of the bed for an hour until his nurse aides showed up and helped him out and brought him to the hospital for further evaluation. Patient has intact recent and remote memory and he was able to give good history. Patient underwent IVC filter insertion procedure which he tolerated well. He was seen today denies any chest pain or trouble breathing he feels great. She is to be placed at the subacute rehab facility and requested to be discharged home once stable Objective - Vital Signs Vital signs: Vital Signs Temp 97.8 F 10/28/16 15:00 Pulse 66 10/28/16 15:00 Resp 20 10/28/16 15:00 BP 119/67 10/28/16 15:00 Pulse Ox 94 L 10/28/16 15:00 Intake & Output 10/27/16 10/28/16 10/28/16 18:59 06:59 18:59 Intake Total 1120 415 565 Output Total 440 175 700 Balance 680 240 -135 Weight 84.5 kg 97 kg 101 kg Intake: IV 25 Intake, IV Titration 220 415 0 Amount Heparin Sodium,Porcine/ 0 415 0 D5w Pmx 25,000 unit In Dextrose/Water 1 500ml. bag @ 10.1 UNITS/KG/HR 20 .15 mls/hr IV .Q24H AIDAN Rx#:[id number] Heparin Sodium,Porcine/ 120 D5w Pmx 25,000 unit In Dextrose/Water 1 500ml. bag @ 18 UNITS/KG/HR 35. 92 mls/hr IV .[id number] AIDAN Rx#:[id number] cefTRIAXone 1,000 mg In 100 Sodium Chloride 0.9% 50 ml @ 100 mls/hr IVPB Q24HR AIDAN Rx#:[id number] Oral 900 540 Output: Urine 440 175 700 Other: Voiding Method Urinal Urinal Urinal Diaper Diaper Diaper Incontinent Incontinent Incontinent # Voids 4 2 1 Constitutional: vital signs stable, Not in acute distress, pleasant, conversant Lungs: Clear to auscultation bilaterally, clear to percussion, normal respiratory effort no use of accessory muscles Cardiovascular: irregular rate and rhythm, no murmurs, no gallops, no rubs, +3 leg edema bilaterally Extremities: No digital cyanosis ischemia or clubbing, no calf muscle tenderness, right groin site of surgical procedure looks unremarkable swelling hematoma or active bleeding. Psych: Alert, oriented to place, person and time - Labs CBC & Chem 7: 10/27/16 05:17 10/27/16 05:17 Labs: Abnormal Lab Results - Last 24 Hours (Table) 10/27/16 10/28/16 10/28/16 Range/Units 21:18 05:51 06:17 APTT 42.1 H (22.0-30.0) sec POC Glucose (mg/dL) 209 H 131 H (75-99) mg/dL 10/28/16 10/28/16 Range/Units 11:46 17:36 APTT (22.0-30.0) sec POC Glucose (mg/dL) 114 H 124 H (75-99) mg/dL Microbiology - Last 24 Hours (Table) 10/26/16 09:00 Urine Culture - Final Urine,Voided Escherichia coli Assessment and Plan (1) Acute deep vein thrombosis (DVT) of femoral vein Narrative/Plan: Continue heparin drip while inpatient Recommending outpatient anticoagulation only the patient stays in a 24 7 supervised facility otherwise anticoagulation risks outweigh benefits Patient has received IVC filter Patient and family elected to go home where he lives alone they will make arrangements for longer hour care to be provided Family and patient understands that he is at risk of falling due to advanced age and debility Status: Acute (2) UTI (urinary tract infection) Narrative/Plan: Recurrent urinary tract infection present on admission no chronic Dunbar catheter Patient continues on Rocephin We'll switch to oral antibiotics upon discharge pending sensitivity results Status: Acute (3) Macrocytosis without anemia Status: Acute (4) Heart failure Narrative/Plan: By mouth Lasix twice a day Continue home medications Cardiology input appreciated Monitor intake and output ports, fluid restriction Status: Acute (5) Fall Narrative/Plan: Physical therapy and occupational therapy Fall precautions Patient refused my recommendations for subacute rehab placement Status: Acute (6) Elevated troponin Narrative/Plan: History of CAD status post stent Continue with Plavix and aspirin Continue with beta cassidy Cardiology evaluated the patient no further recommendations for ischemic workup Status: Acute (7) Pressure sore Narrative/Plan: Wound care consult Status: Acute (8) Diabetes mellitus Narrative/Plan: A1c shows 8.8 Patient will require to be on oral hypoglycemic agents upon discharge will continue with insulin therapy while inpatient Status: Acute (9) DVT prophylaxis Narrative/Plan: Patient currently on heparin drip due to finding of acute DVT Status: Acute (10) Atrial fibrillation Status: Chronic Plan: Patient tolerated procedure today of IVC filter insertion Plans for discharge tomorrow patient refuses subacute rehab placement Patient will be monitored 24 hours post procedure and will be discharged home with family care in the morning The only way patient would be acceptable to use anticoagulation at that 24 7 supervised care is provided in a monitored facility like a [facility] otherwise patient is at risk of falling without 24 7 supervision and risks of anticoagulation outweighs benefits
[2016-10-28 20:08] LABS: Glucose,Whole Blood 161 mg/dL (75-99)
[2016-10-28] MEDS: FERROUS SULFATE 325 MG TAB PO SCH (20:42)
[2016-10-28] MEDS: INSULIN DETEMIR 100 UNIT/ML 10 ML VIAL SQ SCH (20:42)
[2016-10-28] MEDS: POTASSIUM CHLORIDE ER 20 MEQ TAB.ER PO SCH (20:43)
[2016-10-28] MEDS: VITAMIN E (DL,TOCOPHERYL ACET) 400 UNIT CAP PO SCH (20:43)
[2016-10-29] MEDS: HEPARIN SODIUM,PORCINE/D5W PMX 25,000 UNIT in DEXTROSE/WATER 1 500ML.BAG IV SCH (02:03)
[2016-10-29] MEDS: INSULIN LISPRO (humaLOG) 300 UNIT/3 ML VIAL SQ SCH ×2 (08:10→12:25)
[2016-10-29] MEDS: CARVEDILOL 12.5 MG TAB PO SCH (08:14)
[2016-10-29] MEDS: ASPIRIN 81 MG CHEW PO SCH (08:14)
[2016-10-29] MEDS: EZETIMIBE 10 MG TAB PO SCH (08:14)
[2016-10-29 08:15] LABS: Glucose,Whole Blood 109 mg/dL (75-99)
[2016-10-29] MEDS: FUROSEMIDE 40 MG TAB PO SCH (08:15)
[2016-10-29 08:21] VITALS: BP 145/77; PULSE 70; RESP 18; TEMP 97.6
[2016-10-29] MEDS: CLOPIDOGREL 75 MG TAB PO SCH (08:23)
[2016-10-29 08:26] LABS: Basophils % (A) 1 %; CH 36.2; CHCM 32.9; Eosinophils # (A) 0.3 k/uL (0-0.7); Eosinophils % (A) 4 %; HCT 41.6 % (39.0-53.0); HDW 2.21; HGB 13.2 gm/dL (13.0-17.5); Luc # (Auto) 0.26; Luc % (Auto) 3; Lymphocytes # (A) 1.3 k/uL (1.0-4.8); Lymphocytes % (A) 17 %; MCH 35.3 pg (25.0-35.0); MCHC 31.8 g/dL (31.0-37.0); MCV 110.8 fL (80.0-100.0); Macrocytosis Marked; Monocytes # (A) 0.7 k/uL (0-1.0); Monocytes % (A) 9 %; Neutrophils % (A) 67 %; RBC 3.76 m/uL (4.30-5.90); RDW 13.3 % (11.5-15.5); WBC 7.5 k/uL (3.8-10.6); WBC (Perox) 7.62
[2016-10-29 09:08] LABS: Anion Gap 6 mmol/L; Blood Urea Nitrogen 20 mg/dL (9-20); Calcium 8.3 mg/dL (8.4-10.2); Carbon Dioxide 25 mmol/L (22-30); Chloride 103 mmol/L (98-107); Glucose 104 mg/dL (74-99); Non-African American GFR(MDRD) >60 (>60 ml/min/1.73 sqM); Potassium 3.8 mmol/L (3.5-5.1); Sodium 134 mmol/L (137-145)
--- NOTE | 2016-10-29 11:57 | XR ---
EXAMINATION TYPE: XR ankle limited RT DATE OF EXAM: 10/29/2016 COMPARISON: NONE HISTORY: Pain and swelling FINDINGS: Two views of the ankle were obtained. Diffuse extensive subcutaneous edema and osteopenia. Vascular c alcification and calcaneal spur noted. Narrowing of the medial compartment of the ankle mortise noted . Slight deformity at the level the subtalar joint and superior margin of the calcaneus. IMPRESSION: 1. Extensive soft tissue edema and osteopenia with no definite acute fracture. There does appear to b e slight deformity of the subtalar joint and CT scan is recommended to exclude fracture.
[2016-10-29 12:01] LABS: Glucose,Whole Blood 117 mg/dL (75-99)
--- NOTE | 2016-10-29 14:57 | IR ---
EXAMINATION TYPE: IR IVC filter placement DATE OF EXAM: 10/28/2016 COMPARISON: NONE HISTORY: Peripheral vascular occlusive disease. Fluoroscopy was provided to the referring clinician. See dictated report from vascular surgery.
--- NOTE | 2016-10-29 19:11 | P.DS ---
Providers Date of admission: 10/28/16 15:32 Expected date of discharge: 10/29/16 Attending physician: Lydia Callahan DO Consults: 10/26/16 17:03 Consult Physician Routine Consulting Provider: Geoffrey Mg Consult Reason/Comments: elevated trops Do you want consulting provider notified?: Yes 10/27/16 09:09 Consult Physician Routine Consulting Provider: Chapito Brooke Consult Reason/Comments: acute DVT left leg, consideration for IVC filter Do you want consulting provider notified?: Yes Primary care physician: Tang Lang - Discharge Diagnosis(es) (1) Acute deep vein thrombosis (DVT) of femoral vein Status: Acute (2) UTI (urinary tract infection) Status: Acute (3) Macrocytosis without anemia Status: Acute (4) Heart failure Status: Acute (5) Fall Status: Acute (6) Elevated troponin Status: Acute (7) Pressure sore Status: Acute (8) Diabetes mellitus Status: Acute (9) DVT prophylaxis Status: Acute (10) Atrial fibrillation Status: Chronic Hospital Course: Patient seen and examined in follow-up for urinary tract infection, left lower extremity acute DVT 89-year-old male with past medical history of hypertension, atrial fibrillation rate controlled, chronic lower extremity edema, and debility due to advanced age. Patient presented to the hospital after sustaining a fall off his bed, patient has chronic lower extremity weakness and he is wheelchair bound. However he was trying to reach out for his urine now when his feet got tangled with the sheets and he fell off the bed without hitting the ground and was hanging getting on the edge of the bed for an hour until his nurse aides showed up and helped him out and brought him to the hospital for further evaluation. Patient has intact recent and remote memory and he was able to give good history. Patient underwent IVC filter insertion procedure which he tolerated well. patient was seen and examined today, he denies any chest pain trouble breathing or abdominal pain. He feels comfortable and excited about going jen. His daughter is working with his caregiver to arrange for longer hours of supervision at home we also offered them homecare through his insurance. Constitutional: vital signs stable, Not in acute distress, pleasant, conversant Lungs: Clear to auscultation bilaterally, clear to percussion, normal respiratory effort no use of accessory muscles Cardiovascular: Regular rate and rhythm, no murmurs, no gallops, no rubs, + 3 leg edema bilaterally Extremities: no calf muscle tenderness, right groin exam is unremarkable no bleeding no swelling no ecchymosis. Patient has chronic abnormal positioning of both feet with hyperextension Psych: Alert, oriented to place, person and time X-rays of right foot revealed no acute fracture patient will be discharged home with home care, and private care service. Patient will be transported using an ambulance Patient was found to have acute DVT of his left lower extremity in the common femoral vein however he is not a candidate for anticoagulation due to risk of falling. IVC filter was inserted which she tolerated well. Patient had acute urinary tract infection for which she received Rocephin, he will be discharged on Keflex 3 times a day to finish a course of 7 days. Patient was found to be diabetic during this stay with hemoglobin A1c of 8.9, patient will be discharged on metformin twice a day and to be followed up by his PCP. Patient has atrial fibrillation however he is again not a candidate for anticoagulation due to risk of falling and bleeding. More than 35 minutes were spent discharging this patient, and more than 50% of the time was spent in counseling the patient and family and in coordinating care. Pertinent Studies: Duplex venous ultrasound of both lower extremity revealed acute DVT of the left common femoral vein Procedures: IVC filter insertion Patient Condition at Discharge: Stable Plan - Discharge Summary New Discharge Prescriptions: New Cephalexin [Keflex] 500 mg PO Q8HR #10 cap metFORMIN HCL [Glucophage] 500 mg PO BID #60 tab Continue Potassium Chloride ER [K-Dur 20] 20 meq PO HS Ferrous Sulfate [Feosol] 325 mg PO HS Vitamin E (Dl,Tocopheryl Acet) [Vitamin E] 400 unit PO HS Ezetimibe [Zetia] 10 mg PO QAM Clopidogrel [Plavix] 75 mg PO QAM Aspirin EC [Ecotrin Low Dose] 81 mg PO QAM Multivitamin [Men's Multi-Vitamin] 1 tab PO DAILY Ergocalciferol (Vitamin D2) [Drisdol] 50,000 unit PO TU Carvedilol [Coreg] 12.5 mg PO BID Furosemide [Lasix] 40 mg PO HS Discontinued guaiFENesin [Mucinex] 1,200 mg PO HS PRN PRN Reason: Congestion predniSONE 50 mg PO DAILY #5 tab Meclizine [Antivert] 25 mg PO BID PRN PRN Reason: Vertigo Discharge Medication List Aspirin EC [Ecotrin Low Dose] 81 mg PO QAM 02/25/14 [History] Clopidogrel [Plavix] 75 mg PO QAM 02/25/14 [History] Ezetimibe [Zetia] 10 mg PO QAM 02/25/14 [History] Ferrous Sulfate [Feosol] 325 mg PO HS 02/25/14 [History] Multivitamin [Men's Multi-Vitamin] 1 tab PO DAILY 02/25/14 [History] Potassium Chloride ER [K-Dur 20] 20 meq PO HS 02/25/14 [History] Vitamin E (Dl,Tocopheryl Acet) [Vitamin E] 400 unit PO HS 02/25/14 [History] Carvedilol [Coreg] 12.5 mg PO BID 08/25/15 [History] Ergocalciferol (Vitamin D2) [Drisdol] 50,000 unit PO TU 08/25/15 [History] Furosemide [Lasix] 40 mg PO HS 10/26/16 [History] Cephalexin [Keflex] 500 mg PO Q8HR #10 cap 10/29/16 [Rx] metFORMIN HCL [Glucophage] 500 mg PO BID #60 tab 10/29/16 [Rx] Follow up Appointment(s)/Referral(s): Tang José PAC [REFERRING] - 1-2 days (Family will make their own appointments) Chapito Brooke MD [STAFF PHYSICIAN] - 1 Week (Family will make own follow up appointment) Patient Instructions/Handouts: Cephalexin (By mouth), Metformin (By mouth), Urinary Tract Infection in Men (DC), Deep Venous Thrombosis (GEN), Fall Prevention for Older Adults (GEN) Activity/Diet/Wound Care/Special Instructions: regular diet as tolerated fall precautions I advised 24/7 supervision to decrease fall risk transfer home per their request, utilizing ambulance, patient unable to sit in a wheelchair activity as tolerated Care Plan Goals (MU): Patient and family are interested in hospice evaluation , which they will arrange with [facility] Discharge Disposition: HOME WITH HOME HEALTH SERVICES
--- NOTE | 2016-10-31 12:19 | CDI ---
In responding to this query, please exercise your independent professional judgment. The [facility] Coding Staff and Clinical Documentation Specialists appreciate your assistance in clarifying documentation, maintaining compliance with coding guidelines, accurately documenting patients condition and capturing severity of illness. The fact that a question is asked does not imply that any particular answer is desired or expected. Communication forms are a method of clarifying documentation and are not made part of the Legal Health Record. Thank you in advance for your clarification. Last Revision, January 2015 Qamar Angel [address] [place] [address] Documentation Clarification Form Date: 10/31/2016 12:09:00 PM From: Leena Middleton RN, CCDS Admit Date: 10/28/2016 3:32:00 PM Patient Name: Manan Mackay Visit Number: [id number] Dr. Mirella Juarez Atrial fibrillation is documented in the H&P and Progress Notes and requires further specificity. History/Risk Factors: A-Fib rate controlled, CHF, HTN, MS, OA, CAD with stents Clinical Indicators: 10/29 D/C Summary: "Patient has atrial fibrillation however he is again not a candidate for anticoagulation due to risk of falling and bleeding." EKG/telemetry: A-fib Treatment: Coreg 12.5 mg PO BID Consults: Cardiology is not on Consult In your professional opinion, can you please clarify the type of atrial fibrillation, if known? Chronic/Permanent Paroxysmal Persistent Other, please specify Unable to determine Please document in an addendum to your discharge summary in order to capture severity of illness and risk of mortality. Include clinical findings that support your diagnosis. FYI: Press F11 to launch patient chart . GATO
--- NOTE | 2016-10-31 12:37 | CDI ---
In responding to this query, please exercise your independent professional judgment. The [facility] Coding Staff and Clinical Documentation Specialists appreciate your assistance in clarifying documentation, maintaining compliance with coding guidelines, accurately documenting patients condition and capturing severity of illness. The fact that a question is asked does not imply that any particular answer is desired or expected. Communication forms are a method of clarifying documentation and are not made part of the Legal Health Record. Thank you in advance for your clarification. Last Revision, January 2015 Qamar Angel [address] [facility] [place] [address] Documentation Clarification Form Date: 10/31/2016 12:26:00 PM From: Leena Middleton RN, CCDS Admit Date: 10/28/2016 3:32:00 PM Patient Name: Manan Mackay Visit Number: [id number] Dr. Mirella Aguilar pressure ulcer was documented in the Attending H&P and Progress notes and requires further specificity. History/Risk Factors: Fall, bilateral leg edema, venous insufficiency 2/2, RLE DVT, atrial fibrillation, wheelchair bound Clinical Indicators: 10/26 H&P: "Small Pressure sore over bilateral feet." Nursing Assessments: Red and bleachable coccyx, Maceration in the groin. (No Pressure ulcer documentation, no documentation of wounds on toes Treatment: No special skincare or RX skincare documented. Standard nursing patient care. Elements for accurate and compliant documentation of an ulcer: * The location/laterality of the ulcer * Etiology (decubitus/pressure, diabetic, PVD) * Stage I-IV, Unstageable, Suspected Deep Tissue Injury (To the deepest stage) * If the ulcer was present at admission (POA) or occurred after admission In your professional opinion, can you please clarify the diagnosis, location, laterality and whether present on admission (POA): Stage 1 Pressure/Decubitus Ulcer (intact skin, non-blanching redness of local area) Stage 2 Pressure/Decubitus Ulcer (Partial thickness, loss of dermis, pink wound bed) Stage 3 Pressure/Decubitus Ulcer (Full thickness tissue loss) Stage 4 Pressure/Decubitus Ulcer (Full thickness tissue loss with exposed bone, tendon, or muscle. May have slough or eschar present) Unstageable Unable to determine Other condition, please specify *Please indicate cause (if known). Please document in an addendum to your discharge summary in order to capture severity of illness and risk of mortality. Include clinical findings that support your diagnosis. FYI: Press F11 to launch patient chart. GATO
== END 2016-10-29 14:05 | disposition home health service (06) | DRG 253 ==
LOC: EC 07:49 → 6SEL 09:45 → 5MS5E 10-28 09:47 → OBSVTOIN 10-28 15:32 → 5MS5E 10-29 03:13
PROVIDERS: ADMIT Internal Medicine; ATTEND Internal Medicine
PROC: 06H03DZ Insertion of Intraluminal Device into Inferior Vena Cava, Percutaneous Approach (ICD-10-PCS; principal; 2016-10-28 08:00)
DX: I82.412 Acute embolism and thrombosis of left femoral vein (principal); N39.0 Urinary tract infection, site not specified; I11.0 Hypertensive heart disease with heart failure; I82.4Y2 Acute embolism and thrombosis of unspecified deep veins of left proximal lower extremity; E11.65 Type 2 diabetes mellitus with hyperglycemia; I50.9 Heart failure, unspecified; D75.89 Other specified diseases of blood and blood-forming organs; G47.33 Obstructive sleep apnea (adult) (pediatric); I25.10 Atherosclerotic heart disease of native coronary artery without angina pectoris; I25.2 Old myocardial infarction; I87.2 Venous insufficiency (chronic) (peripheral); N40.0 Benign prostatic hyperplasia without lower urinary tract symptoms; M19.90 Unspecified osteoarthritis, unspecified site; M54.5 Low back pain; R01.1 Cardiac murmur, unspecified; R74.8 Abnormal levels of other serum enzymes; I48.2 Chronic atrial fibrillation; R32 Unspecified urinary incontinence; M48.06 Spinal stenosis, lumbar region; M51.36 Other intervertebral disc degeneration, lumbar region; M25.562 Pain in left knee; M25.561 Pain in right knee; R60.9 Edema, unspecified; L89.621 Pressure ulcer of left heel, stage 1; L89.611 Pressure ulcer of right heel, stage 1; E66.9 Obesity, unspecified; Z68.25 Body mass index [BMI] 25.0-25.9, adult; Z66 Do not resuscitate; Z79.02 Long term (current) use of antithrombotics/antiplatelets; Z79.82 Long term (current) use of aspirin; Z79.899 Other long term (current) drug therapy; Z79.52 Long term (current) use of systemic steroids; Z88.2 Allergy status to sulfonamides; Z87.440 Personal history of urinary (tract) infections; Z87.891 Personal history of nicotine dependence; Z99.3 Dependence on wheelchair; Z96.653 Presence of artificial knee joint, bilateral; Z95.5 Presence of coronary angioplasty implant and graft; W06.XXXA Fall from bed, initial encounter; Y92.009 Unspecified place in unspecified non-institutional (private) residence as the place of occurrence of the external cause
CPT/HCPCS: 36415; 37191; 71020; 72131; 80048; 80053; 81001; 82272; 82607; 82747; 83036; 83880; 84443; 84484; 85025; 85379; 85610; 85730; 87077; 87086; 87186; 93005; 93970; 96365; 99285